=== PATIENT | female | born 1975 | race Asian ===

== ENCOUNTER 2021-05-06 06:29 | Emergency (ER) | payer BC, OTHER ==
[~2021-05-06] VITALS: Ht 160 cm; Wt 83.9 kg
[2021-05-06 07:16] LABS: Basophils # (auto) 0 10 ^3/uL (0-0.2); Basophils % (auto) 0.5 % (0.0-2.0); Eosinophils # (auto) 0 10 ^3/uL (0-0.8); Eosinophils % (auto) 0.1 % (0.0-7.0); Hematocrit 41.7 % (36.0-46.0); Hemoglobin 14.6 g/dL (12.2-16.2); Lymphocytes # (auto) 1.3 10 ^3/uL (0.4-5.4); Lymphocytes % (auto) 18.4 % (10.0-50.0); Mean Corpuscular Volume 91.4 fL (80.0-100.0); Monocytes # (auto) 0.2 10 ^3/uL (0-1.3); Monocytes % (auto) 3.1 % (0.0-12.0); Neutrophils # (auto) 5.4 10 ^3/uL (1.6-8.6); Neutrophils % (auto) 77.9 % (37.0-80.0); Nucleated Red Blood Cells % 0.1 %; Red Blood Cells 4.56 10^6/uL (4.0-5.20); Red Cell Distribution Width 12.8 % (11.8-14.3); White Blood Cell 6.9 10^3/uL (4.4-10.8)
[2021-05-06 07:53] LABS: Potassium 3.6 mmol/L (3.5-5.1)
[2021-05-06 08:02] LABS: Albumin 4.2 g/dL (3.4-5.0); Bilirubin, Total 0.3 mg/dL (0.2-1.0); Calcium 9.2 mg/dL (8.5-10.1); Total Protein 9.6 g/dL (6.4-8.2)
[2021-05-06 08:08] LABS: Lipase 70 U/L (73-393)
[2021-05-06] MEDS ORDERED: LORazepam 2MG/ML-1ML VIAL IV ONE (08:15)
[2021-05-06 08:16] LABS: CRP High Sensitivity 0.07 mg/dL (< 0.3)
[2021-05-06 08:21] LABS: Urine Bacteria NONE SEEN /hpf (None Seen); Urine Blood Negative /uL (Negative); Urine Mucus FEW (None Seen); Urine Specific Gravity 1.008 (1.001-1.035); Urine WBC 2 /hpf (0 - 5)
[2021-05-06 11:17] VITALS: BP 135/86
== END 2021-05-06 11:29 | disposition home or self-care (01) ==
LOC: ER 06:29
DX: K52.9 Noninfective gastroenteritis and colitis, unspecified (principal); F41.9 Anxiety disorder, unspecified; Z20.822 Contact with and (suspected) exposure to COVID-19
CPT/HCPCS: 36415; 74176; 80053; 81001; 82728; 83690; 84484; 85025; 86141; 87426; 96374; 99284; J2060